=== PATIENT | male | born 1995 | race Caucasian/White ===

== ENCOUNTER 2024-03-03 05:49 | Emergency (ER) | payer MEDICAID, SELFPAY ==
[2024-03-03 05:50] VITALS: BMI 33.6
[2024-03-03 05:56] VITALS: BP 148/95; PULSE 94; RESP 19; TEMP 36.6; O2SAT 97
--- NOTE | 2024-03-03 06:23 | XR_ITS ---
Examination: CT abdomen and pelvis without contrast. Coronal 3-D reconstructions. Sagittal 2-D reconstructions. Date and time of exam:March 03, 2024 0738 hrs. Indications: Onset left-sided abdominal pain today CTDI: vol (mGy): 10.2 DLP: (mGycm): 500 Technique: Axial images of the abdomen have been obtained, 3 mm slice thickness Intravenous contrast material has not been administered. Low dose protocols were performed. One or more of the following dose reduction techniques were used; automated exposure control, adjustment of the mA and/or KV according to patient size, use of iterative reconstruction technique. Findings: Or splenic lesions No gallstones No pancreatic mass Mild bilateral renal parenchymal scar formation No renal or ureteral calculi, no hydronephrosis Tiny fat-containing umbilical hernia No pericecal inflammatory change No diverticulitis No prostatomegaly No bladder mass or bladder calculi The osseous structures are intact Impression: Mild bilateral renal parenchymal scar formation No renal or ureteral calculi, no hydronephrosis No CT findings of appendicitis bowel obstruction or diverticulitis
[2024-03-03] MEDS: METOCLOPRAMIDE 5 MG TABLET 10 MG PO (06:29)
[2024-03-03] MEDS: ACETAMINOPHEN 500 MG TABLET 1000 MG PO (06:29)
[2024-03-03 07:09] LABS: Basophils # (Auto) 0.1 Thou/mm3 (0.0-0.2); Basophils % (Auto) 1 % (0-2.5); Eosinophils # (Auto) 0.1 Thou/mm3 (0.0-0.5); Eosinophils % (Auto) 1 % (0-10); Hematocrit 55.2 % (41.0-53.0); Hemoglobin 19.5 g/dL (13.5-16.0); Immature Granulocytes % (Auto) 0 % (0-0); Immature Granulocytes Auto 0.01 Thou/mm3 (0.00-0.00); Lymphocytes # (Auto) 2.1 Thou/mm3 (1.0-4.8); Lymphocytes % (Auto) 27 % (10-50); Mean Corpuscular HGB Conc 35.3 g/dl (31.0-37.0); Mean Corpuscular Hemoglobin 30.2 pg (25.0-35.0); Mean Corpuscular Volume 86 fL (80-100); Monocytes # (Auto) 0.8 Thou/mm3 (0.0-0.8); Monocytes % (Auto) 10 % (0-12); Neutrophils # (Auto) 4.6 Thou/mm3 (1.8-7.7); Neutrophils % (Auto) 60 % (37-80); Nucleated Red Blood Cell % 0 /100 WBC (0); Platelet Count 281 Thou/mm3 (140-440); RDW Standard Deviation 38.7 fL (35.1-43.9); Red Blood Count 6.45 Miln/mm3 (4.50-5.90); White Blood Count 7.7 Thou/mm3 (3.8-10.6)
[2024-03-03 07:51] LABS: Alanine Aminotransferase 18 U/L (10-49); Albumin, Serum 5.1 gm/dL (3.5-5.0); Albumin/Globulin Ratio 1.8 (1.2-2.2); Alkaline Phosphatase 63 U/L (46-116); Anion Gap 4 (7-16); Aspartate Amino Transferase 20 U/L (0-34); BUN/Creatinine Ratio 15 Ratio (12-20); Bilirubin,Total 0.7 mg/dL (0.3-1.2); Blood Urea Nitrogen 15 mg/dL (9-23); Calcium 10.1 mg/dL (8.3-10.6); Calcium (Corrected) 10.1 mg/dL (8.5-10.1); Carbon Dioxide 29.3 mMol/L (20.0-31.0); Chloride 103 mMol/L (98-107); Estimated Creatinine Clearance 121.3 mL/min (>60); Globulin 2.9 gm/dL (2.3-3.5); Glucose 113 mg/dL (74-106); Lipase 35 U/L (12-53); Osmolality,Calculated 273 (275-295); Potassium 4.8 mMol/L (3.4-5.1); Sodium 136 mMol/L (136-145); eGFR > 60 See Note
[2024-03-03 08:10] LABS: Collection Type, Urine Clean Catch
--- NOTE | 2024-03-03 08:25 | PD.EDABDPN ---
ED Abdominal Pain RME/HPI General Chief Complaint: Abdominal Pain Stated complaint: LEFT ABD PAIN Time seen by provider: 03/03/24 06:19 Arrival date/time: 03/03/24 05:49 28-year-old male with no significant medical problems presents emergency department complains of left lower abdominal pain patient reports symptoms ongoing since Thursday patient reports no fever no chest pain no shortness of breath no cough Limitations: no limitations Related Data Home Medications ?Medication ?Instructions ?Recorded ?Confirmed omeprazole magnesium 20 mg 20 mg PO DAILY ##0 08/14/12 tablet,delayed release (Prilosec OTC) Previous Rx's ?Medication ?Instructions ?Recorded ibuprofen 800 mg tablet 800 mg PO TID PRN pain #30 tabs 11/11/22 loperamide 2 mg capsule (Imodium 2 mg PO Q6H PRN loose stool #14 03/12/23 A-D) caps ondansetron 4 mg disintegrating 4 mg PO Q8H PRN nausea and 03/12/23 tablet vomiting #15 tabs acetaminophen 500 mg capsule 1,000 mg (2 x 500 mg) PO Q8HR PRN 03/03/24 pain #30 caps metoclopramide HCl 10 mg tablet 10 mg PO Q6H PRN nausea and 03/03/24 (Reglan) vomiting #30 tabs Allergies Allergy/AdvReac Type Severity Reaction Status Date / Time No Known Allergies Allergy Verified 03/12/23 08:58 Review of Systems Review of Systems Systems Reviewed: All systems reviewed, normal except as documented Constitutional Constitutional: Reports system reviewed and no additional complaints, except as documented, Denies fever(s) and Denies headache(s) Eyes Eyes: Reports system reviewed and no additional complaints, except as documented and Denies blurry vision ENT Ears, Nose, Mouth, and Throat: Reports system reviewed and no additional complaints, except as documented, Denies headache(s), Denies nasal congestion and Denies nasal discharge Cardiovascular Cardiovascular: Reports system reviewed and no additional complaints, except as documented, Denies chest pain and Denies dyspnea Respiratory Respiratory: Reports system reviewed and no additional complaints, except as documented, Denies chest congestion, Denies cough and Denies dyspnea Gastrointestinal Gastrointestinal: Reports system reviewed and no additional complaints, except as documented, Reports abdominal pain, Reports nausea and Denies vomiting Integumentary/Breasts Skin/Breast: Reports system reviewed and no additional complaints, except as documented and Denies rash Neurologic Neurologic: Reports system reviewed and no additional complaints, except as documented, Reports as per HPI and Denies headache(s) Past Medical History Past Medical History NEUROLOGIC: Negative Neurological Disorders CARDIAC: Negative Cardiac Disorders Social History SMOKING STATUS: Current every day smoker ED Exam General Limitations: Present no limitations General appearance: Present alert and in no apparent distress Head Head exam: Present atraumatic Eye Eye exam: Present normal appearance, PERRL and EOMI ENT ENT exam: Present normal exam, normal oropharynx and mucous membranes moist Neck Neck exam: Present normal inspection, full ROM and trachea midline Chest Chest inspection: Present normal inspection and symmetric chest wall rise Respiratory Respiratory exam: Present normal lung sounds bilaterally Cardiovascular Cardiovascular exam: Present regular rate, normal rhythm and normal heart sounds Abdominal Exam Abdominal exam: Present soft, tenderness and normal bowel sounds; Absent distention, guarding, rebound or rigidity Abdominal tenderness: Absent RUQ or RLQ Extremities Exam Extremities exam: Present normal inspection and full ROM Back Exam Back exam: Present normal inspection and full ROM Neurological Exam Neurological exam: Present alert, oriented X3 and CN II-XII intact Psychiatric Psychiatric exam: Present normal affect and normal mood Skin Skin exam: Present warm, dry, intact and normal color Course Quality Measures none Orders Category Date Time Status CT abdomen pelvis wo con Stat Exams 03/03/24 06:23 Completed CBC Stat Lab 03/03/24 06:56 Completed Comprehensive Metabolic Panel Stat Lab 03/03/24 06:56 Completed Drug Screen,Urine Stat Lab 03/03/24 07:59 Completed Lipase Stat Lab 03/03/24 06:56 Completed UA, C/S IF [Urinalysis, C/S if Indicated] Stat Lab 03/03/24 07:59 Completed Acetaminophen Tab [Tylenol ES Tab] Med 03/03/24 06:23 Discontinued 1,000 mg PO X1 ONE Metoclopramide [Reglan] Med 03/03/24 06:23 Discontinued 10 mg PO X1 ONE Vital Signs Vital signs: Vital Signs Temperature 97.8 F 03/03/24 05:56 Pulse Rate 94 03/03/24 05:56 Respiratory Rate 19 03/03/24 05:56 Blood Pressure 148/95 H 03/03/24 05:56 Pulse Oximetry (%) 97 03/03/24 05:56 Oxygen Delivery Method Room Air 03/03/24 05:56 O2 saturation 97% room air with normal limits Abdominal Pain MDM MDM Narrative [facility] Narrative:: 28-year-old male with no significant medical problems presents emergency department complains of left lower abdominal pain patient reports symptoms ongoing since Thursday patient reports no fever no chest pain no shortness of breath no cough On exam patient does have tenderness left lower quadrant Lab work as well as CT scan obtained no acute emergent findings noted Patient medicated here Patient discharged home in no distress to follow-up with primary care doctor in the next 24 to 48 hours and for any worsening symptoms to return to the ER immediately Patient data External records reviewed:: [facility] previous records Clinical information provided by:: patient Social determinants that could affect healthcare access:: none Patient has the following chronic illnesses:: None How is presenting disease/condition affected by chronic disease/condition?: no chronic disease Evaluation data The following diagnostics were reviewed and interpreted by me:: lab results and radiology exam(s) Lab and/or radiology exams considered but not ordered:: Labs radiology obtained Interpretation Summary: Reviewed by me Medications / Prescriptions Medications or Prescriptions considered but not ordered:: Given Medication administrations:: Medication Administration History Discontinued Medications Acetaminophen (Acetaminophen 500 Mg Tablet) 1,000 mg PO X1 ONE Stop: 03/03/24 06:24 Last Admin: 03/03/24 06:29 Dose: 1,000 mg Documented By: CVL Metoclopramide HCl (Metoclopramide 5 Mg Tablet) 10 mg PO X1 ONE Stop: 03/03/24 06:24 Last Admin: 03/03/24 06:29 Dose: 10 mg Documented By: CVL Given Consultations Consultation(s) initiated? (list below): No Diagnosis Differential diagnosis abdominal pain: abdominal pain, acute appendicitis, diverticulitis and pancreatitis Most likely diagnosis given after review of the tests above:: Abdominal pain Admission Indicated Admission indicated?: not indicated Admission Request Was there a request for admission?: No Disposition Plan Disposition Plan: Discharge Discharge Attestation Discharge Attestation: The patient and all family members were given an opportunity to ask questions and understood the discharge instructions. Discharge instructions specifically effects, indications for sooner follow up or return to the emergency department, and the expected course of current diagnosis. Patient condition: Stable Discharge Plan Plan Patient Disposition: HOME (Self Care) Disposition Comment: stable Prescriptions/Referrals Prescriptions/Med Rec: New acetaminophen 500 mg capsule 1,000 mg PO Q8HR PRN (Reason: pain) Qty: 30 0RF metoclopramide HCl [Reglan] 10 mg tablet 10 mg PO Q6H PRN (Reason: nausea and vomiting) Qty: 30 0RF No Action omeprazole magnesium [Prilosec OTC] 20 MG tablet,delayed release (DR/EC) 20 mg PO DAILY Qty: 0 ibuprofen 800 mg tablet 800 mg PO TID PRN (Reason: pain) Qty: 30 0RF loperamide [Imodium A-D] 2 mg capsule 2 mg PO Q6H PRN (Reason: loose stool) Qty: 14 0RF ondansetron 4 mg tablet,disintegrating 4 mg PO Q8H PRN (Reason: nausea and vomiting) Qty: 15 0RF Referrals: Roberto Narayan MD [Primary Care Provider] - 03/04/24 Problem List Clinical Impression: Abdominal pain Patient/Caregiver Discharge Instructions Education Materials: Abdominal Pain Additional Instructions: Please follow up with your primary care doctor in the next 24-48hrs for any worsening symptoms return here immediately Print Language: Lao Stand Alone Forms: It[employer] Award Info., Work/School Release, Patient Portal Info Letter 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 Deshpande
[2024-03-03 08:28] LABS: Amphetamine/Methamp Scrn,U Negative (Negative); Barbiturate Screen,Urine Negative (Negative); Benzodiazepines Screen,Urine Negative (Negative); Benzoylecgonine Screen, Ur Negative (Negative); Fentanyl Screen,Urine Negative (Negative); Opiate Screen,Urine Negative (Negative); THC Screen,Urine Positive (Negative)
[2024-03-03 08:52] LABS: Bacteria,Urine Rare; Bilirubin,Urine Negative (Negative); Blood,Urine Negative (Negative); Clarity,Urine Clear (Clear/Hazy); Color,Urine Yellow (Lt Yel-Yel); Culture Indicated,Urine Not Indicated; Glucose, Urine Negative (Negative); Ketones,Urine Negative (Negative); Leukocyte Esterase,Urine Negative (Negative); Nitrite,Urine Negative (Negative); PH,Urine 6.5 (5.0-7.0); Protein,Urine 1+ (Neg - Trace); RBC,Urine 2 /hpf (0-3); Squamous Epithelial Cell,Urine < 1 /hpf (0-5); Urobilinogen,Urine Negative mg/dL (0.0-1.0); WBC,Urine 2 /hpf (0-5)
[2024-03-03 09:02] VITALS: BP 129/78; PULSE 72; RESP 18; TEMP 36.6; O2SAT 96
== END 2024-03-03 09:02 | disposition home or self-care (01) ==
PROVIDERS: Nurse Practitioner Primary Care; Emergency Provider Emergency Medicine; PCP Family Medicine
DX: R10.32 Left lower quadrant pain (principal)
CPT/HCPCS: 36415; 74176; 80053; 80307; 81001; 83690; 85025; 99284; A9270

== ENCOUNTER 2024-07-28 16:54 | Emergency (ER) | payer MEDICAID, SELFPAY ==
[2024-07-28 16:55] VITALS: BMI 31.9
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
--- NOTE | 2024-07-28 18:09 | PC.NURSE ---
called pt back, no answer at this time
[2024-07-28 18:40] VITALS: BP 106/72; PULSE 82; RESP 16; TEMP 37.2; O2SAT 97
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
--- NOTE | 2024-07-28 20:00 | PC.NURSE ---
RAPID RESPONSE CALLED TO CT FOR PT. ON ARRIVAL PT SITTING IN WHEELCHAIR WITH DAMP CLOTH ON HEAD. PT APPEARED DIAPHORETIC. PER CT TRANSPORTER PT DID NOT HAVE A PULSE FOR APPROX 40 SECONDS. PT WAS RESPONSIVE TO THIS NURSE AND PT WAS BROUGHT TO ER # 3 FOR EVALUATION.
[2024-07-28 20:14] LABS: Basophils # (Auto) 0.1 Thou/mm3 (0.0-0.2); Basophils % (Auto) 1 % (0-2.5); Eosinophils % (Auto) 0 % (0-10); Hematocrit 53.5 % (41.0-53.0); Hemoglobin 18.9 g/dL (13.5-16.0); Immature Granulocytes % (Auto) 0 % (0-0); Immature Granulocytes Auto 0.06 Thou/mm3 (0.00-0.00); Lymphocytes # (Auto) 2.6 Thou/mm3 (1.0-4.8); Lymphocytes % (Auto) 17 % (10-50); Mean Corpuscular HGB Conc 35.3 g/dl (31.0-37.0); Mean Corpuscular Hemoglobin 30.2 pg (25.0-35.0); Mean Corpuscular Volume 86 fL (80-100); Monocytes # (Auto) 1.7 Thou/mm3 (0.0-0.8); Monocytes % (Auto) 11 % (0-12); Neutrophils # (Auto) 11.3 Thou/mm3 (1.8-7.7); Neutrophils % (Auto) 72 % (37-80); Nucleated Red Blood Cell % 0 /100 WBC (0); Platelet Count 252 Thou/mm3 (140-440); RDW Standard Deviation 37.9 fL (35.1-43.9); Red Blood Count 6.26 Miln/mm3 (4.50-5.90); White Blood Count 15.7 Thou/mm3 (3.8-10.6)
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
[2024-07-28 20:37] VITALS: BP 128/69; PULSE 68; RESP 18; TEMP 36.9; O2SAT 96
[2024-07-28] MEDS: MORPHINE SULF INJ 10 MG/ML VIAL 5 MG IVP (20:40)
[2024-07-28 20:55] LABS: Alanine Aminotransferase 15 U/L (10-49); Albumin, Serum 4.9 gm/dL (3.5-5.0); Albumin/Globulin Ratio 1.6 (1.2-2.2); Alcohol, Blood Medical < 3.0 mg/dL (0-10.0); Alkaline Phosphatase 64 U/L (46-116); Anion Gap 8 (7-16); Aspartate Amino Transferase 19 U/L (0-34); BUN/Creatinine Ratio 12 Ratio (12-20); Bilirubin,Total 0.6 mg/dL (0.3-1.2); Blood Urea Nitrogen 13 mg/dL (9-23); Calcium 9.6 mg/dL (8.3-10.6); Calcium (Corrected) 9.6 mg/dL (8.5-10.1); Carbon Dioxide 24.5 mMol/L (20.0-31.0); Chloride 107 mMol/L (98-107); Creatinine (Component) 1.1 mg/dL (0.6-1.3); Estimated Creatinine Clearance 110.9 mL/min (>60); Glucose 99 mg/dL (74-106); Osmolality,Calculated 277 (275-295); Potassium 3.8 mMol/L (3.4-5.1); Sodium 139 mMol/L (136-145); Total Protein 7.9 gm/dL (5.7-8.2); Troponin I < 0.002 ng/mL (0.0-0.045); eGFR > 60 See Note
[2024-07-28 21:14] LABS: Amphetamine/Methamp Scrn,U Negative (Negative); Barbiturate Screen,Urine Negative (Negative); Benzodiazepines Screen,Urine Negative (Negative); Benzoylecgonine Screen, Ur Negative (Negative); Fentanyl Screen,Urine Negative (Negative); Opiate Screen,Urine Negative (Negative); THC Screen,Urine Positive (Negative)
--- NOTE | 2024-07-28 21:25 | PC.NURSE ---
To ct-scan via gurney.
--- NOTE | 2024-07-28 22:13 | PC.NURSE ---
Pt still in ct-scan.
--- NOTE | 2024-07-28 23:07 | PC.NURSE ---
Jean Claude REFRESH TECHNICIAN in to talk to Pt with regards to results and plan of care.
[2024-07-28 23:08] VITALS: BP 115/68; PULSE 68; RESP 18; TEMP 36.6; O2SAT 96
[2024-07-28 23:34] VITALS: BP 123/77; PULSE 66; RESP 18; TEMP 36.6; O2SAT 96
== END 2024-07-28 23:40 | disposition home or self-care (01) ==
PROVIDERS: Physician Assistant; Emergency Provider Emergency Medicine; PCP Family Medicine
DX: R55 Syncope and collapse (principal); S20.219A Contusion of unspecified front wall of thorax, initial encounter; D72.829 Elevated white blood cell count, unspecified; S09.90XA Unspecified injury of head, initial encounter; S19.9XXA Unspecified injury of neck, initial encounter; S39.91XA Unspecified injury of abdomen, initial encounter; R06.02 Shortness of breath; V23.41XA Electric (assisted) bicycle driver injured in collision with car, pick-up truck or van in traffic accident, initial encounter
CPT/HCPCS: 36415; 70450; 70496; 70498; 71046; 71260; 72125; 74177; 80053; 80307; 80320; 83605; 84484; 85025; 93005; 99285; A4649; J2270; Q9967; G0480